=== PATIENT | female | born 1945 | race Caucasian/White ===

== ENCOUNTER 2024-04-24 15:05 | Emergency (ER) | payer MEDICARE, OTHER, SELFPAY ==
[2024-04-24 15:17] VITALS: BP 137/80
[2024-04-24 15:35] LABS: % Basophils 0.9 % (0-2); % Eosinophils 1.4 % (0-6); % Immature Granulocytes 0.3 % (0-0.5); % Lymphocytes 24.4 % (20.5-51.1); % Monocytes 7.6 % (1.7-9.3); % Neutrophils 65.4 % (42.2-75.2); Absolute Basophils 0.1 10^3/uL (0-0.2); Absolute Eosinophils 0.1 10^3/uL (0-0.7); Absolute Lymphocytes 1.6 10^3/uL (1.2-3.4); Absolute Monocytes 0.5 10^3/uL (0.1-0.6); Absolute Neutrophils 4.3 10^3/uL (1.4-6.5); Hematocrit 39.8 % (37.0-47.0); Hemoglobin 13.5 g/dL (12.0-16.0); Mean Corp Hgb Conc. 33.9 g/dL (33.0-37.0); Mean Corpuscular Hgb 30.5 pg (27.0-31.0); Mean Corpuscular Volume 89.8 fL (81.0-99.0); Mean Platelet Volume 9.4 fL (7.4-10.4); Nucleated Red Blood Cells % 0 %; Platelet Count 258 10^3/uL (130-400); Red Blood Cell Count 4.43 10^6/uL (4.20-5.40); Red Cell Dist. Width 12.2 % (11.5-14.5); White Blood Cell Count 6.6 10^3/uL (4.8-10.8)
[2024-04-24 15:49] LABS: ALT (SGPT) 19 U/L (0-35); AST (SGOT) 30 U/L (14-36); Albumin 4.3 g/dl (3.5-5.0); Alkaline Phosphatase 90 U/L (38-126); Blood Urea Nitrogen 19 mg/dl (7-17); Calcium 9.6 mg/dl (8.4-10.2); Carbon Dioxide 27 mmol/L (22-30); Chloride 101 mmol/L (98-107); Glucose 105 mg/dl (70-99); Potassium 4.6 mmol/L (3.5-5.1); Sodium 137 mmol/L (135-145); Total Bilirubin 0.7 mg/dl (0.2-1.3); Total Protein 7.5 g/dl (6.3-8.2); eGFR > 60.00
[2024-04-24 15:59] LABS: Troponin I < 0.012 ng/ml
--- NOTE | 2024-04-24 16:12 | ED.GENMED ---
History of Present Illness
General
Chief Complaint: Chest Pain
Source: patient
Exam Limitations: none
Time Seen by Provider: 04/24/24 16:12
History of Present Illness
History of Present Illness:
Patient was driving to her hair appointment about 230 today when she developed sudden chest pain. Slightly running into the throat. No back pain no diaphoresis no shortness of breath. She gets this about once a month. However 2 things change
that warranted ER evaluation, 1 usually does not last a half an hour and 2 she had a recent non-STEMI LA. She currently is asymptomatic. She is on Plavix and aspirin. No stent required. This feels different than her LA pain.
Past History
Past History
ED Past Medical History: CAD, Cancer (Melanoma), HTN, Hypercholesterolemia and Other (Zhao's esophagitis)
ED Past Surgical History: Gynecological
Review of Systems
Review of Systems
All Other Systems: Not applicable
Constitutional: Denies fever or chills
Respiratory: Reports no symptoms
ABD/GI: Reports no symptoms
Phy Exam
Physical Exam
Physical Exam:
GENERAL: Alert and oriented in no apparent distress
EYE: Orbits normal.
NECK: Supple, no significant adenopathy.
ENT: Pharynx without erythema
CARDIAC: Regular rate and rhythm without any obvious murmurs.
LUNGS: Clear breath sounds,normal
ABDOMEN: Soft, without focal tenderness or distention
NEUROLOGICAL: Alert and oriented , grossly non-focal
SKIN: Warm and dry, no rash or lesion, no discoloration, skin intact.
MUSCULOSKELETAL: No edema,no deformity.Good color
PSYCH: Normal and appropriate interaction.
Scores
Heart Score for Chest Pain Patients
STEMI patient?: No
History: Slightly or Non-Suspicious
ECG: Normal
Age: >/= 65 years
Risk Factors: 1 or 2 Risk Factors
Troponin: </= Normal Limit
Heart Score for Chest Pain Patients: 3
Heart Score Risk: 2.5% MACE over next 6 weeks
Course
Orders/Labs/Results
Orders:
Orders
04/24/24 15:06
EKG [Electrocardiogram (*1)] Urgent
Reason for Study: Chest Pain
EKG- Treatment ONCE
04/24/24 15:27
Complete Blood Count/With Diff Urgent
04/24/24 15:28
Comprehensive Metabolic Panel Urgent
Troponin I Urgent
04/24/24 16:37
EKG- Treatment ONCE
04/24/24 17:21
CXR2 [CR Chest - 2 Views ] Urgent
Comment:
Reason For Exam: cp
04/24/24 18:30
Electrocardiogram (*1) Stat
Reason for Study: Other
Other Reason for Exam: chest pain
04/24/24 18:41
Troponin I Urgent
Abnormal Lab Results
04/24/24
15:28
BUN 19 H mg/dl
(7-17)
Glucose 105 H mg/dl
(70-99)
04/24/24 15:27
04/24/24 15:28
Vital Signs
Initial and Last Documented VS:
Initial Vital Signs
Temp Pulse Resp BP Pulse Ox
98.0 F 64 18 137/80 100
04/24/24 15:17 04/24/24 15:17 04/24/24 15:17 04/24/24 15:17 04/24/24 15:17
Last Documented Vital Signs
Temp Pulse Resp BP Pulse Ox
98.0 F 58 16 153/74 95
04/24/24 15:17 04/24/24 19:15 04/24/24 19:15 04/24/24 19:00 04/24/24 19:15
*Pulse Oximetry
Patient hypoxic: no
*EKG
Interpreted by ED Provider?: Yes
Comparison EKG: changes noted
Heart Rate: 68
Rate: normal
Rhythm: sinus
[place]: normal axis
Interval: normal interval
QRS Pattern: right bundle branch block
Ischemia: non-specific ST changes
*Critical Care Note
Total Time (30-74mins, 75-104mins- exclusive of procedures): Not Applicable
Update Note
Update Note:
Patient's cardiology office was called
Repeat EKG right bundle branch block. No acute changes. Patient remained asymptomatic. Repeat troponin negative. Atypical recurrent chest pain different than her previous non-STEMI LA. Stable for discharge to follow-up
ED Attending Note
-
Portions of this chart may have been created with voice recognition software.� Occasional wrong word or��sound alike� substitutions may have occurred due to the inherent limitations of voice recognition software.
Discharge Plan
Departure
Patient Disposition: Home (Routine Discharge)
Date of Disposition: 04/24/24
Time of Disposition: 19:59
Patient with high blood pressure during this ER visit?: Yes
Discharge Problem:
Anterior chest pain
Instructions: Chest pain
Prescriptions:
No Action
ascorbic acid (vitamin C) [Vitamin C] 1,000 MG tablet
1,000 mg PO DAILY
cyanocobalamin (vitamin B-12) 1,000 MCG tablet
1,000 mcg PO DAILY
lysine 1,000 MG tablet
1,000 mg PO DAILY
ropinirole 2 MG tablet
2 mg PO HS
pantoprazole 40 MG tablet,delayed release (DR/EC)
40 mg PO DAILY
aspirin 81 MG tablet,chewable
1 tab PO DAILY
zinc 50 MG tablet
50 mg PO DAILY
cranberry 500 MG capsule
500 mg PO TID
calcium carbonate-vitamin D3 1 EACH tablet
2 ea PO DAILY
L.acidoph,paracasei,B.animalis 1 EACH capsule
1 ea PO DAILY
colostrum, bovine [DiaResQ] 1 EACH powder in packet
1 ea PO DAILY
cholecalciferol (vitamin D3) 125 MCG tablet,disintegrating
125 mcg PO DAILY
Referrals:
UNKNOWN - PT DOES,NOT KNOW [Family Provider] -
Activity Restrictions/Additional Instructions:
Call your probate judge tomorrow for close follow-up
Interventions
Interventions:
*Risk Screen - Suicide Last Done: 04/24/24 15:17
*General Assessment Last Done: 04/24/24 15:17
*Neglect/Abuse Screening Last Done: 04/24/24 15:17
ED- Fall Risk Assessment Last Done: 04/24/24 16:06
*ED COVID-19 Vaccine History Last Done: 04/24/24 15:17
ED- Cardiac Assessment Last Done: 04/24/24 16:06
Discharge Date and Time
Print Language: BRUNEIAN
[2024-04-24 17:00] VITALS: BP 141/68
[2024-04-24 18:00] VITALS: BP 125/70
[2024-04-24 19:00] VITALS: BP 153/74
[2024-04-24 19:11] LABS: Troponin I < 0.012 ng/ml
== END 2024-04-24 20:10 | disposition home or self-care (01) ==
LOC: EMR 15:05
PROVIDERS: EMERGENCY PHYSICIAN Emergency Medicine
DX: R07.89 Other chest pain (principal); I25.10 Atherosclerotic heart disease of native coronary artery without angina pectoris; I10 Essential (primary) hypertension; E78.00 Pure hypercholesterolemia, unspecified; I25.2 Old myocardial infarction; Z79.82 Long term (current) use of aspirin; Z85.820 Personal history of malignant melanoma of skin
CPT/HCPCS: 99285; 71046; 80053; 84484; 85025; 93005